=== PATIENT | female | born 1960 | race Caucasian/White ===

== ENCOUNTER 2022-08-16 12:53 | Emergency (ER) | payer MEDICARE ==
[~2022-08-16] VITALS: Ht 182.9 cm; Wt 99.7 kg
[2022-08-16] MEDS ORDERED: LACTATED RINGERS 1,000 ML IV STA (13:08)
--- NOTE | 2022-08-16 13:08 | ED Neurological Problem ---
General Chief Complaint: Neuro-Stroke Like Symptoms Stated Complaint: AMS Source: patient, EMS Exam Limitations: no limitations History of Present Illness Date Seen by Provider: Aug 16, 2022 Time Seen by Provider: 12:50 Initial Comments 61-year-old female with past medical history of stroke with residual left-sided weakness coming in due to confusion from home. Took a nap possibly couple hours ago, and woke up confused. She has residual left-sided weakness, is wheelchair- bound and electric wheelchair at home, and unsure when she was last normal. She is very hard of hearing, but denies any chest pain, shortness of breath, abdominal pain, nausea, vomiting, diarrhea, fever, chills, new focal weakness or numbness, or any other concerns Allergies and Home Medications Allergies Coded Allergies: ondansetron (Verified Allergy, Unknown, 08/16/22) Patient Home Medication List Home Medication List Reviewed: Yes Review of Systems Review of Systems Constitutional: No fever Eyes: Denies Blurred Vision Ears, Nose, Mouth, Throat: no symptoms reported Respiratory: no symptoms reported Cardiovascular: no symptoms reported Gastrointestinal: no symptoms reported Genitourinary: no symptoms reported Musculoskeletal: no symptoms reported Skin: no symptoms reported Psychiatric/Neurological: See HPI Endocrine: No Symptoms Reported Hematologic/Lymphatic: No Symptoms Reported All Other Systems Reviewed Negative Unless Noted: Yes Past Hzoihjl-Dhatxv-Stplev Hx Patient Social History Tobacco Use?: Yes Substance use?: No Past Medical History Surgeries: Yes Section, Orthopedic Physical Exam Vital Signs Vital Signs - First Documented 08/16/22 13:00 Temp 36.8 Pulse 100 Resp 24 B/P (MAP) 168/88 (114) Pulse Ox 93 O2 Delivery Room Air Capillary Refill : Height, Weight, BMI Height: '" Weight: lbs. oz. kg; BMI Method: General Appearance: WD/WN, no apparent distress HEENT: PERRL/EOMI, normal ENT inspection, pharynx normal, other (dry tongue) Neck: non-tender, full range of motion, supple, normal inspection Respiratory: chest non-tender, lungs clear, normal breath sounds, no respiratory distress, no accessory muscle use Cardiovascular: no edema, no murmur, irregularly irregular Gastrointestinal: normal bowel sounds, non tender, soft; No distended, No guarding, No rebound Back: normal inspection, no CVA tenderness Extremities: normal range of motion, non-tender, normal inspection, no pedal edema, no calf tenderness, normal capillary refill 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, alert, normal mood/affect, oriented x 3, other (left side weak) Crainal Nerves: normal hearing (hard of hearing with hearing aids in), normal speech Skin: normal color, warm/dry Lymphatic: no adenopathy Stroke Onset of Symptoms Date of Onset of Symptoms: Aug 15, 2022 Time of Symptom Onset: 23:00 Onset of Symptoms: Yes NIH Stroke Scale Assessment Select: Initial Level of Consciousness: 0=Alert (0), Level of Consciousness- Questions: 1=Answers one question (1), LOC Commands: 0=Performs both tasks (0), Gaze: Normal (0), Visual Mcmahan: 0=No visual loss (0), Facial Movement (Facial Paresis): 0=Normal symmetrical mnt (0), Motor Function-Arms Right: 0=No drift (0), Motor Function-Arms Left: 1=Drift (1), Motor Function-Legs Right: 0=No drift (0), Motor Function-Legs Left: 2=Some effort/gravity (2), Limb Ataxia: 0=Absent (0), Sensory: 0=Normal:no loss (0), Best Language: 0=No aphasia (0), Dysarthria: 1=Mild to moderate loss (1), Extinction & Inattention: 0=No abnormality (0), Total: 5 Stroke Thrombolytic Exclusion History of CVA: Yes Oral Anticoagulants: Yes Improving Symptoms: Yes TPA Contraindication: Yes IV - TPa Received IV - TPa Procedure Performed?: No Progress/Results/Core Measures Results/Orders Lab Results Laboratory Tests Test 08/16/22 13:06 08/16/22 13:12 08/16/22 14:15 Range/Units Glucometer 289 H 70-110 MG/DL White Blood Count 9.0 4.3-11.0 10^3/uL Red Blood Count 4.86 3.80-5.11 10^6/uL Hemoglobin 14.0 11.5-16.0 g/dL Hematocrit 42 35-52 % Mean Corpuscular Volume 86 80-99 fL Mean Corpuscular Hemoglobin 29 25-34 pg Mean Corpuscular Hemoglobin Concent 34 32-36 g/dL Red Cell Distribution Width 11.9 10.0-14.5 % Platelet Count 109 L 130-400 10^3/uL Mean Platelet Volume 12.0 9.0-12.2 fL Immature Granulocyte % (Auto) 0 % Neutrophils (%) (Auto) 77 H 42-75 % Lymphocytes (%) (Auto) 15 12-44 % Monocytes (%) (Auto) 8 0-12 % Eosinophils (%) (Auto) 0 0-10 % Basophils (%) (Auto) 0 0-10 % Neutrophils # (Auto) 6.9 1.8-7.8 10^3/uL Lymphocytes # (Auto) 1.4 1.0-4.0 10^3/uL Monocytes # (Auto) 0.7 0.0-1.0 10^3/uL Eosinophils # (Auto) 0.0 0.0-0.3 10^3/uL Basophils # (Auto) 0.0 0.0-0.1 10^3/uL Immature Granulocyte # (Auto) 0.0 0.0-0.1 10^3/uL Percent Immature Platelet Fraction 11.1 H 0.0-7.6 % Prothrombin Time 14.9 H 12.2-14.7 SEC INR Comment 1.1 0.8-1.4 Activated Partial Thromboplast Time 27 24-35 SEC Sodium Level 133 L 135-145 MMOL/L Potassium Level 4.5 3.6-5.0 MMOL/L Chloride Level 94 L 98-107 MMOL/L Carbon Dioxide Level 27 21-32 MMOL/L Anion Gap 12 5-14 MMOL/L Blood Urea Nitrogen 7 7-18 MG/DL Creatinine 0.77 0.60-1.30 MG/DL Estimat Glomerular Filtration Rate 88 BUN/Creatinine Ratio 9 Glucose Level 296 H 70-105 MG/DL Calcium Level 10.0 8.5-10.1 MG/DL Corrected Calcium 8.5-10.1 MG/DL Total Bilirubin 0.5 0.1-1.0 MG/DL Aspartate Amino Transf (AST/SGOT) 25 5-34 U/L Alanine Aminotransferase (ALT/SGPT) 37 0-55 U/L Alkaline Phosphatase 148 H 40-136 U/L Troponin I < 0.30 <0.30 NG/ML Total Protein 7.6 6.4-8.2 GM/DL Albumin 4.6 H 3.2-4.5 GM/DL Urine Color YELLOW Urine Clarity CLOUDY Urine pH 6.0 5-9 Urine Specific [place] 1.025 H 1.016-1.022 Urine Protein NEGATIVE NEGATIVE Urine Glucose (UA) 3+ H NEGATIVE Urine Ketones TRACE H NEGATIVE Urine Nitrite POSITIVE H NEGATIVE Urine Bilirubin NEGATIVE NEGATIVE Urine Urobilinogen 0.2 < = 1.0 MG/DL Urine Leukocyte Esterase 1+ H NEGATIVE Urine RBC (Auto) NEGATIVE NEGATIVE Urine RBC NONE /HPF Urine WBC TNTC H /HPF Urine Crystals NONE /LPF Urine Bacteria LARGE H /HPF Urine Casts NONE /LPF Urine Mucus NEGATIVE /LPF Urine Culture Indicated YES My Orders Orders - SUBHASH ELIZABETH MD Cbc With Automated Diff (08/16/22 13:08) Protime With Inr (08/16/22 13:08) Partial Thromboplastin Time (08/16/22 13:08) Comprehensive Metabolic Panel (08/16/22 13:08) Troponin I Fs (08/16/22 13:08) Ua Culture If Indicated (08/16/22 13:08) Chest 1 View Ap/Pa Only (08/16/22 13:08) Ekg Tracing (08/16/22 13:08) Accucheck Stat ONCE (08/16/22 13:08) Ed Iv/Invasive Line Start (08/16/22 13:08) Ed Iv/Invasive Line Start (08/16/22 13:08) Vital Signs Stroke Patient Q15M (08/16/22 13:08) Ct Head Wo-R/O Stroke (08/16/22 13:08) O2 (08/16/22 13:08) Intake & Output 06,14,22 (08/16/22 13:08) Monitor-Rhythm Ecg Trace Only (08/16/22 13:08) Dysphagia Screening Tool Q10MX1 (08/16/22 13:08) Lactated Ringers (Lr 1000 Ml Iv Solution (08/16/22 13:08) Straight Cath For Spec.-Adult (08/16/22 14:18) Urine Culture (08/16/22 14:15) Ceftriaxone 1 Gm Pre-Mix (Rocephin 1 Gm (08/16/22 14:30) Vital Signs/I&O 08/16/22 13:00 Temp 36.8 Pulse 100 Resp 24 B/P (MAP) 168/88 (114) Pulse Ox 93 O2 Delivery Room Air Progress Progress Note : Progress Note 61-year-old female with above history coming in due to confusion. ABCs were intact and vitals were stable on presentation. Physical exam with left-sided weakness, and after contacting family, that is her baseline and has been for many years since her previous stroke. After contacting the patient's family, they state that she has just been more confused and the way she is talking. They say intermittently she is disoriented and has been for quite some time. CT head with no acute findings, chest x-ray with no signs of infection. Basic labs obtained and unremarkable other than she is a bit hyperglycemic. Her tongue is very dry on exam and she appears mildly dehydrated. Urinalysis with concerns for infection. Given a dose of ceftriaxone as well as a liter of IV fluids here. The urinary tract infection could certainly cause her confusion. Given she is close to her baseline, I believe she is stable for discharge with outpatient follow-up. She was sent home with strict return precautions Initial ECG Impression Date: Aug 16, 2022 Initial ECG Impression Time: 13:54 Initial ECG Rate: 102 Initial ECG Rhythm: S.Tach Comment Narrow QRS, normal axis, motion artifact, but accounting for that no significant ST changes Diagnostic Imaging Diagonstic Imaging: Xray (chest), CT (head) Comments [facility]. [place], [place] NAME: PAWAN MORENO [facility] REC#: [id number] PT STATUS: REG ER : 1960 PHYSICIAN: SUBHASH ELIZABETH MD ADMIT DATE: 08/16/22/ER FS Draft Date of Exam:08/16/22 CHEST 1 VIEW AP/PA ONLY Indication: Altered mental status and weakness. Comparison: None. Discussion: Single portable frontal upright view of the chest was obtained. Cardiomegaly is present. Elevated right hemidiaphragm. No focal consolidation. No pleural fluid or pneumothorax. No osseous abnormality. Impression: 1. Cardiomegaly without angela failure. Dictated on workstation # [id number] Dict: 08/16/22 1349 Trans: 08/16/22 1353 [facility] [id number] Interpreted by: AUDREY MOORE MD Electronically signed by: [facility]. [place], [place] NAME: PAWAN MORENO [facility] REC#: [id number] PT STATUS: REG ER : 1960 PHYSICIAN: SUBHASH ELIZABETH MD ADMIT DATE: 08/16/22/ER FS Draft Date of Exam:08/16/22 CT HEAD WO-R/O STROKE PROCEDURE: CT head wo r/o stroke. TECHNIQUE: Multiple contiguous axial images were obtained through the brain without the use of intravenous contrast. Auto Exposure Controls were utilized during the CT exam to meet ALARA standards for radiation dose reduction. INDICATION: Altered mental status, left-sided weakness. COMPARISON: None. DISCUSSION: Chronic appearing encephalomalacia noted within the right frontoparietal lobe, likely from an old infarct. There is associated volume loss. Probable calcified meningioma along the right frontal lobe. No acute intracranial hemorrhage, mass, midline shift or hydrocephalus otherwise. The orbits, sinuses, mastoid air cells, and calvarium are unremarkable. The ventricles and sulci are normal size and configuration for age. IMPRESSION: 1. Senescent changes as described. No acute intracranial abnormality identified. Dictated on workstation # [id number] Dict: 08/16/22 1347 Trans: 08/16/22 1354 [facility] [id number] Interpreted by: AUDREY MOORE MD Electronically signed by: Departure Impression Primary Impression: Cystitis Additional Impression: Confusion Disposition: 01 HOME, SELF-CARE Condition: Stable Departure-Patient Inst. Decision time for Depature: 14:45 Patient Instructions: Acute Cystitis (DC) Add. Discharge Instructions: You have an infection in your urine going back through your bladder. You were given a strong IV antibiotic in the hospital, and you will be on an antibiotic at home for the next week. Follow-up with your regular doctor if things are not improving after that. Scripts Cefdinir (Cefdinir) 300 Mg Capsule 300 MG PO BID for 7 Days, #14 CAP 0 Refills Prov: SUBHASH ELIZABETH MD 08/16/22 SUBHASH ELIZABETH MD Aug 16, 2022 13:08
[2022-08-16 13:13] LABS: BASOPHILS % (AUTO) 0 % (0-10); EOSINOPHILS % (AUTO) 0 % (0-10); HEMATOCRIT 42 % (35-52); LYMPHOCYTES # (AUTO) 1.4 10^3/uL (1.0-4.0); LYMPHOCYTES % (AUTO) 15 % (12-44); MEAN CORPUSCULAR HEMOGLOBIN 29 pg (25-34); MEAN CORPUSCULAR HGB CONC 34 g/dL (32-36); MEAN CORPUSCULAR VOLUME 86 fL (80-99); MONOCYTES # (AUTO) 0.7 10^3/uL (0.0-1.0); MONOCYTES % (AUTO) 8 % (0-12); NEUTROPHILS # (AUTO) 6.9 10^3/uL (1.8-7.8); NEUTROPHILS % (AUTO) 77 % (42-75); PLATELET COUNT 109 10^3/uL (130-400)
[2022-08-16 13:21] LABS: INR 1.1 (0.8-1.4); PROTHROMBIN TIME PATIENT 14.9 SEC (12.2-14.7)
[2022-08-16 13:32] LABS: ALANINE AMINOTRANSFERASE 37 U/L (0-55); ALBUMIN 4.6 GM/DL (3.2-4.5); ALKALINE PHOSPHATASE 148 U/L (40-136); BILIRUBIN,TOTAL 0.5 MG/DL (0.1-1.0); BUN/CREATININE RATIO 9; CARBON DIOXIDE 27 MMOL/L (21-32); CHLORIDE 94 MMOL/L (98-107); CREATININE SERUM 0.77 MG/DL (0.60-1.30); GFR ESTIMATED 88; GLUCOSE 296 MG/DL (70-105); POTASSIUM 4.5 MMOL/L (3.6-5.0); SODIUM 133 MMOL/L (135-145); TOTAL PROTEIN 7.6 GM/DL (6.4-8.2)
--- NOTE | 2022-08-16 13:53 | Diagnostic Imaging Report ---
Indication: Altered mental status and weakness. Comparison: None. Discussion: Single portable frontal upright view of the chest was obtained. Cardiomegaly is present. Elevated right hemidiaphragm. No focal consolidation. No pleural fluid or pneumothorax. No osseous abnormality. Impression: 1. Cardiomegaly without angela failure. Dictated by: Dictated on workstation # [id number]
--- NOTE | 2022-08-16 13:55 | Diagnostic Imaging Report ---
PROCEDURE: CT head wo r/o stroke. TECHNIQUE: Multiple contiguous axial images were obtained through the brain without the use of intravenous contrast. Auto Exposure Controls were utilized during the CT exam to meet ALARA standards for radiation dose reduction. INDICATION: Altered mental status, left-sided weakness. COMPARISON: None. DISCUSSION: Chronic appearing encephalomalacia noted within the right frontoparietal lobe, likely from an old infarct. There is associated volume loss. Probable calcified meningioma along the right frontal lobe. No acute intracranial hemorrhage, mass, midline shift or hydrocephalus otherwise. The orbits, sinuses, mastoid air cells, and calvarium are unremarkable. The ventricles and sulci are normal size and configuration for age. IMPRESSION: 1. Senescent changes as described. No acute intracranial abnormality identified. Dictated by: Dictated on workstation # [id number]
[2022-08-16 14:19] LABS: BILIRUBIN,URINE NEGATIVE (NEGATIVE); CLARITY,URINE CLOUDY; COLOR,URINE YELLOW; GLUCOSE, URINE (UA) 3+ (NEGATIVE); KETONES,URINE TRACE (NEGATIVE); LEUKOCYTE ESTERASE ,URINE 1+ (NEGATIVE); NITRITE,URINE POSITIVE (NEGATIVE); PROTEIN,URINE NEGATIVE (NEGATIVE)
[2022-08-16 14:22] LABS: BACTERIA,URINE LARGE /HPF; WBC,URINE TNTC /HPF
[2022-08-16] MEDS ORDERED: cefTRIAXone 1 GM PRE-MIX 50 ML IV ONE (14:30)
[2022-08-16] MEDS ORDERED: CEFD300C3 PO (14:38)
[2022-08-16] MEDS ORDERED: RX-CEFDINIR 300 MG CAP PPK #2 PO STA (14:51)
[2022-08-16 15:45] VITALS: BP 159/84
== END 2022-08-16 15:45 | disposition home or self-care (01) ==
LOC: EDSEX 12:56 → ER FS 12:56
DX: N30.90 Cystitis, unspecified without hematuria (principal); R41.0 Disorientation, unspecified; R73.9 Hyperglycemia, unspecified; Z72.0 Tobacco use
CPT/HCPCS: 36415; 51701; 70450; 71045; 80053; 81000; 82947; 84484; 85025; 85610; 85730; 87077; 87088; 87186; 93005; 93041